=== PATIENT | female | born 2000 | race Caucasian/White ===

== ENCOUNTER 2022-02-15 09:30 | Emergency (ER) | payer BC, SELFPAY ==
[2022-02-15] VITALS (8 sets, daily range): BP systolic 116–136; BP diastolic 29–90; PULSE 72–96; RESP 18–19; TEMP 36.7–36.9; O2SAT 97–100; BMI 20.3
--- NOTE | 2022-02-15 09:37 | HMH.EDGENADL ---
Discharge Plan Disposition Patient Disposition: Home, Self-Care Condition: Fair Prescriptions Prescriptions: New omeprazole 20 mg capsule,delayed release(DR/EC) 20 mg PO DAILY 28 Days Qty: 28 0RF No Action norgestimate-ethinyl estradiol [Sprintec (28)] 0.25-35 mg-mcg tablet 1 tab PO DAILY Qty: 28 6RF Referrals Follow up/Referrals: Provider,Referral, MD [Primary Care Provider] - See instructions Activity Restrictions/Add. Instructions Additional Instructions/Restrictions: You have been evaluated for abdominal pain. No clear source identified. It may be due to ulcers. Please start taking daily omeprazole. Avoid spicy food, fatty food, eating for bedtime. It would be a good idea to try a bowel cleanout regimen. Take 3 doses of MiraLAX today. Follow-up with your primary care doctor in 1 to 2 days for symptom recheck. Return to the emergency department at once for any new or worsening symptoms Clinical Impressions Clinical Impression: Epigastric abdominal pain Stand Alone Forms Stand Alone Forms: Work/School Release Instructions Patient Instructions: DI for Acute Abdominal Pain, DI for Epigastric Pain Discharge ED Provider: Huyen Stoddard Adult HPI General Chief complaint: Abdominal Pain Stated complaint: Lower back pain, RT side rib pain Time Seen by Provider: 02/15/22 09:32 History of Present Illness HPI narrative: 21-year-old female presenting to the emergency department with abdominal pain. Pain started yesterday evening after dinner. It is described as a sharp, squeezing pain that is located in the upper abdomen. Radiates slightly to the right and into her back. Pain has been almost constant since onset. Associated nausea with one episode of emesis. [place] better after vomiting briefly. No recent illness, fevers, chills, cough, shortness of breath. Had diarrhea last week. No constipation. She has a history of gastric sleeve surgery 2 years ago. Denies complications. Has had appendectomy. Sexually active with boyfriend. Denies concern for . No medications prior to arrival Related Data Previous Rx's Medication Instructions Recorded norgestimate 0.25 mg-ethinyl 1 tab PO DAILY #28 tabs 09/16/21 estradiol 35 mcg tablet (Sprintec (28)) omeprazole 20 mg capsule,delayed 20 mg PO DAILY 4 weeks #28 caps 10/15/22 release Allergies Allergy/AdvReac Type Severity Reaction Status Date / Time No Known Allergies Allergy Verified 04/16/20 13:46 PFSH PFS Social History Smoking Status: Current every day smoker alcohol intake: never substance use type: denies use current occupational status: other Travel in the last 8 weeks: None ROS Obtained: Yes All systems reviewed & no additional complaints except as documented Constitutional Constitutional: Denies chills, Denies fever(s) and Denies headache(s) Eyes Eyes: Denies blurry vision and Denies itchy eyes ENT Ears, Nose, Mouth, and Throat: Denies headache(s), Denies neck pain and Denies sore throat Cardiovascular Cardiovascular: Denies chest pain, Denies dyspnea and Denies palpitations Respiratory Respiratory: Denies cough, Denies dyspnea and Denies wheezing Gastrointestinal Gastrointestingal: Reports abdominal pain, bloating, cramping, diarrhea, nausea and vomiting Genitourinary Female Genitourinary: Denies dysuria and Denies flank pain Musculoskeletal Musculoskeletal: Denies neck pain and Denies numbness Neurologic Neurologic: Denies headache(s) and Denies numbness Endocrine Endocrine: Denies palpitations Allergic/Immunologic Allergic/Immunologic: Denies itchy eyes and Denies wheezing Physical Exam General General appearance: alert and in no apparent distress Head Head exam: atraumatic and normocephalic ENT ENT exam: Present normal exam, normal oropharynx and mucous membranes moist Respiratory Respiratory exam: Present normal lung sounds bilaterally; Absent respiratory distress or wheezes Ca
[2022-02-15 09:57] LABS: Basophils # 0.1 K/mm3 (0-0.2); Basophils % 0.6 % (0.1-2.0); Eosinophils # 0.1 K/mm3 (0.0-0.4); Eosinophils % 1.4 % (0.1-12.0); Hematocrit 44.2 % (37.0-47.0); Hemoglobin 14.8 g/dL (12.2-16.2); Lymphocytes # 2.1 K/mm3 (0.7-4.5); Lymphocytes % 24.9 % (10-50); Mean Corpuscular HGB Conc 33.5 g/dL (31.8-35.4); Mean Corpuscular Hemoglobin 29.1 pg (27.0-31.2); Mean Corpuscular Volume 86.7 fl (81-99); Mean Platelet Volume 8.3 fl (7.4-10.4); Monocytes # 0.5 K/mm3 (0.1-1.0); Monocytes % 5.5 % (1.7-9.3); Neutrophils # 5.8 K/mm3 (1.8-7.8); Neutrophils % 67.6 % (37.0-80.0); Platelet Count 338 K/mm3 (142-424); Red Cell Distribution Width 13.3 % (11.5-17.5); White Blood Count 8.5 K/mm3 (4.8-10.8)
[2022-02-15 10:01] LABS: Chloride 106 mmol/L (98-107); Sodium 141 mmol/L (136-145)
[2022-02-15 10:03] LABS: Alanine Aminotransferase 24 U/L (12-78); Alkaline Phosphatase 74 U/L (38-126); Aspartate Amino Transferase 46 U/L (14-36); Bilirubin,Total 0.8 mg/dl (0.2-1.3); Blood Urea Nitrogen 5 mg/dl (7-17); Estimated Glomerular Filt Rate 106 ml/min (>60); GFR (African American) 128 ML/MIN (>60)
[2022-02-15 10:04] LABS: Albumin Level 4.9 g/dl (3.5-5.0); Albumin/Globulin Ratio 1.8 (1.1-1.8); Calcium 9.1 mg/dl (8.4-10.2); Carbon Dioxide 23 mmol/L (22.0-30.0); Globulin 2.8 g/dL (1.3-3.2); Glucose 101 mg/dl (74-100); Lipase 45 U/L (23-300); Total Protein,Serum 7.7 g/dl (6.3-8.2)
--- NOTE | 2022-02-15 10:24 | CT_ITS ---
PROCEDURE INFORMATION: Exam: CT Abdomen And Pelvis With Contrast Exam date and time: 02/15/2022 11:09 AM Age: 21 years old Clinical indication: Abdominal pain; Prior surgery; Surgery date: 6+ months; Surgery type: HX of gastric sleeve TECHNIQUE: Imaging protocol: Computed tomography of the abdomen and pelvis with contrast. Radiation optimization: All CT scans at this facility use at least one of these dose optimization techniques: automated exposure control; mA and/or kV adjustment per patient size (includes targeted exams where dose is matched to clinical indication); or iterative reconstruction. Contrast material: ISOVUE; Contrast volume: 75 ml; Contrast route: IV; COMPARISON: No relevant prior studies available. FINDINGS: Lungs: No acute airspace or pleural disease. Liver: Fatty infiltration of the liver. Gallbladder and bile ducts: Unremarkable gallbladder. Pancreas: No pancreatic mass or ductal dilatation. Spleen: No splenomegaly. Adrenal glands: Unremarkable adrenals. Kidneys and ureters: Normal renal morphology. No hydronephrosis. Stomach and bowel: Status post gastric surgery. Mild colonic dilatation and prominent stool. Diverticula, without pericolonic inflammation. Appendix: Nonvisualization of the appendix. Intraperitoneal space: No significant free fluid. Vasculature: Normal caliber of the abdominal aorta. Lymph nodes: Subcentimeter lymph nodes. Urinary bladder: Nondistended bladder. Reproductive: 2.3 cm right ovarian cyst. Bones/joints: No acute osseous pathology. Soft tissues: Infiltration of subcutaneous fat about the umbilicus. IMPRESSION: 1. No acute inflammatory process in the abdomen or pelvis. 2. 2.3 cm right ovarian cyst. 3. Additional findings as described above.
[2022-02-15 10:45] LABS: Microscopic, Urine URINE MICROSCOPIC (MICROSCOPIC)
[2022-02-15 10:46] LABS: Appearance,Urine SL CLOUDY (Clear); Bilirubin,Urine Negative (Negative); Blood, Urine Negative (Negative); Color,Urine YELLOW (Yellow); Glucose,Urine (UA) Negative (Negative); Ketones,Urine Negative (Negative); Leukocyte Esterase,Urine 2+ (Negative); Nitrate,Urine Negative (Negative); Protein,Urine Negative (Negative); Urobilinogen,Urine 0.2 EU/dl (0.2)
[2022-02-15 10:47] LABS: Urine Pregnancy, HCG Qual. Negative (Negative)
[2022-02-15 11:22] LABS: Bacteria,Urine 2+ /lpf; RBC,Urine Occasional #/hpf (0-3)
== END 2022-02-15 13:50 | disposition home or self-care (01) ==
PROVIDERS: Emergency Provider Emergency Medicine
DX: R10.13 Epigastric pain; Z72.0 Tobacco use
CPT/HCPCS: 74177; 80053; 81001; 81025; 83690; 85025; 87086; 96365; 96375; 99284; J2405; Q9967

== ENCOUNTER 2022-02-24 12:31 | Emergency (ER) | payer BC, SELFPAY ==
[2022-02-24 12:31] VITALS: BP 126/82; PULSE 91; RESP 18; TEMP 37.1; O2SAT 97; BMI 20.3
--- NOTE | 2022-02-24 14:29 | EXP.UTC ---
Discharge Plan Disposition Patient Disposition: Home, Self-Care Condition: Good Prescriptions Prescriptions: New tclkvcyuznskdat-rwnjrnvyk-TP [Bromfed DM] 2-30-10 mg/5 mL Syrup 10 ml PO Q4H PRN (Reason: Cough) Qty: 240 0RF azithromycin [Zithromax Z-Jules] 250 mg tablet See Rx Instructions .ROUTE .COMPLEX 5 Days Qty: 6 0RF Rx Instructions: For 250 mg dose pack: take 500 mg today (day 1), then 250 mg for 4 days (days 2-5) prednisone 20 mg tablet 20 mg PO BID Qty: 10 0RF albuterol sulfate [Proventil HFA] 90 mcg/actuation HFA aerosol inhaler 1 inh inhalation Q6H PRN (Reason: shortness of breath or wheezing) Qty: 8.5 0RF No Action norgestimate-ethinyl estradiol [Sprintec (28)] 0.25-35 mg-mcg tablet 1 tab PO DAILY Qty: 28 6RF omeprazole 20 mg capsule,delayed release(DR/EC) 20 mg PO DAILY norgestimate-ethinyl estradiol [Sprintec (28)] 0.25-35 mg-mcg tablet 1 tab PO DAILY Label Comments: TAKE 1 TABLET BY MOUTH ONCE DAILY sertraline 100 mg tablet 100 mg PO DAILY Label Comments: TAKE 1 TABLET BY MOUTH ONCE DAILY Referrals Follow up/Referrals: Provider,Referral, MD [Primary Care Provider] - See instructions Discharge ED Provider: Christianne Cote [facility] [place] HPI General Stated complaint: RSV Exposure, cough, drainage, congestion Mode of Arrival: Ambulatory Source of Information: Patient Limitations: No Limitations Time Seen by Provider: 02/24/22 14:29 Description of Symptoms (Recalled from Triage Doc. by RN): exposed to RSV lst thursday. cough runny nose, diarrhea LINDO HEENT Symptoms (Recalled from RN notes): Yes Resp Symptoms (Recalled from RN notes): Yes Skin Symptoms (Recalled from RN notes): No MS Symptoms (Recalled from RN notes): No Functional Status (Recalled from RN notes): n/a History of Present Illness Provider Complaint: Patient states that she was around a family member that had RSV a week or so ago States that she has been having sinus congestion and pressure, drainage in the back of her throat and feeling like it is trying to move into her chest States that at times she will cough up some mucous States that today she was feeling worse so she came in Related Data Home Medications Medication Instructions Recorded Confirmed norgestimate 0.25 mg-ethinyl 1 tab PO DAILY control 02/24/22 02/24/22 estradiol 35 mcg tablet (Sprintec (28)) omeprazole 20 mg capsule,delayed 20 mg PO DAILY control 02/24/22 release sertraline 100 mg tablet 100 mg PO DAILY mood 02/24/22 02/24/22 Previous Rx's Medication Instructions Recorded norgestimate 0.25 mg-ethinyl 1 tab PO DAILY #28 tabs 09/16/21 estradiol 35 mcg tablet (Sprintec (28)) albuterol sulfate 90 mcg/actuation 1 inh inhalation Q6H PRN shortness 02/24/22 aerosol inhaler (Proventil HFA) of breath or wheezing #8.5 grams azithromycin 250 mg tablet See Rx Instructions PO .COMPLEX 5 02/24/22 (Zithromax Z-Jules) days #6 tabs ouhhhcfxrcnfuye-xcbffsbaxmrjetz-RC 10 ml PO Q4H PRN Cough #240 mL 02/24/22 2 mg-30 mg-10 mg/5 mL oral syrup (Bromfed DM) prednisone 20 mg tablet 20 mg PO BID #10 tabs 02/24/22 Allergies Allergy/AdvReac Type Severity Reaction Status Date / Time No Known Allergies Allergy Verified 04/16/20 13:46 Worker's Comp Is this a Worker's Comp case?: No PFSH PFSH Social History Smoking Status: Current every day smoker alcohol intake: never substance use type: denies use current occupational status: other Travel in the last 8 weeks: None ROS Obtained: Yes All systems reviewed & no additional complaints except as documented and Yes Systems reviewed as appropriate & no additional complaints except as documented Constitutional Constitutional: Reports system reviewed and no additional complaints, except as documented, Reports as per HPI and Reports headache(s) ENT Ears, Nose, Mouth, and Throat: Reports system reviewed and no additional complaints, except as docu
[2022-02-24 14:37] LABS: Adenovirus,PCR Not Detected (NotDetected); Bordetella Pertussis Not Detected (NotDetected); Chlamydophila Pneumoniae, PCR Not Detected (NotDetected); Coronavirus 19, PCR Not Detected (NotDetected); Coronavirus 229E Not Detected (NotDetected); Coronavirus NL63 Not Detected (NotDetected); Coronavirus OC43 Not Detected (NotDetected); Coronovirus HKU1,PCR Not Detected (NotDetected); Human Metapneumovirus Not Detected (NotDetected); Influenza A, PCR Not Detected (NotDetected); Influenza AH1, 2009 Not Detected (NotDetected); Influenza AH1, PCR Not Detected (NotDetected); Influenza AH3,PCR Not Detected (NotDetected); Influenza B, PCR Not Detected (NotDetected); Mycoplasma Pneumoniae, PCR Not Detected (NotDetected); Parainfluenza 1, PCR Not Detected (NotDetected); Parainfluenza 2, PCR Not Detected (NotDetected); Parainfluenza 3, PCR Not Detected (NotDetected); Parainfluenza 4, PCR Not Detected (NotDetected); Rhinovirus/Enterovirus Not Detected (NotDetected)
[2022-02-24 15:05] VITALS: BP 126/84; PULSE 84; RESP 19; TEMP 37.1; O2SAT 98
[2022-02-24 17:45] LABS: Respiratory Syncytial Virus Detected (NotDetected)
== END 2022-02-24 15:04 | disposition home or self-care (01) ==
PROVIDERS: Emergency Provider Nurse Practitioner
DX: R06.02 Shortness of breath (principal); B97.4 Respiratory syncytial virus as the cause of diseases classified elsewhere; R51.9 Headache, unspecified; Z20.822 Contact with and (suspected) exposure to COVID-19; F17.200 Nicotine dependence, unspecified, uncomplicated; Z79.51 Long term (current) use of inhaled steroids; Z79.52 Long term (current) use of systemic steroids; Z79.899 Other long term (current) drug therapy; Z79.3 Long term (current) use of hormonal contraceptives
CPT/HCPCS: 87581; 87632; 87798; 99213; C9803; G0463; U0003; U0005

== ENCOUNTER 2023-05-07 16:43 | Outpatient (CLI) | payer BC, SELFPAY ==
--- NOTE | 2023-05-07 16:50 | XR_ITS ---
PROCEDURE INFORMATION: Exam: XR Chest Exam date and time: 05/07/2023 4:54 PM Age: 22 years old Clinical indication: Pre-operative exam; Respiratory screening exam; Additional info: Asthma TECHNIQUE: Imaging protocol: Radiologic exam of the chest. Views: 2 views. Total images: 2 COMPARISON: CT ABDOMEN PELVIS W CON 02/15/2022 11:09 AM FINDINGS: Lungs: Unremarkable. No consolidation. Pleural spaces: Unremarkable. No pleural effusion. No pneumothorax. Heart/Mediastinum: Unremarkable. No cardiomegaly. Bones/joints: Unremarkable. IMPRESSION: No acute findings.
== END 2023-05-07 23:59 ==
PROVIDERS: PCP Nurse Practitioner Family; Visit Provider Colon & Rectal Surgery
DX: J45.909 Unspecified asthma, uncomplicated (principal)
CPT/HCPCS: 71046

== ENCOUNTER 2024-12-29 16:29 | Emergency (ER) | payer BC, SELFPAY ==
[2024-12-29 17:23] VITALS: BP 108/58; PULSE 65; RESP 17; TEMP 36.5; O2SAT 100; BMI 24.4
[2024-12-29 17:38] VITALS: BP 118/72; PULSE 66; O2SAT 100
[2024-12-29 17:38] LABS: Microscopic, Urine URINE MICROSCOPIC (MICROSCOPIC)
[2024-12-29 17:39] LABS: Bilirubin,Urine Negative (Negative); Color,Urine YELLOW (Yellow); Glucose,Urine (UA) Negative (Negative); Ketones,Urine Negative (Negative); Leukocyte Esterase,Urine TRACE (Negative); PH,Urine 6.5 (5.0-8.5); Protein,Urine Negative (Negative); Specific Gravity, Urine <= 1.005 (1.005-1.030); Urobilinogen,Urine 0.2 EU/dl (0.2)
--- NOTE | 2024-12-29 17:55 | US_ITS ---
PROCEDURE INFORMATION: Exam: US , Transvaginal Exam date and time: 12/29/2024 6:06 PM Age: 24 years old Clinical indication: Lmp or gestational age (in weeks): 8w2d; Other: Vaginal bleeding -- early preg; ; Additional info: 8 weeks, vaginal bleeding LABS AND CLINICAL REPORTS: Last menstrual period start date: 10/27/2024 Gestational age (Established): 9 w 0 d Estimated due date (Established): 08/03/2025 TECHNIQUE: Imaging protocol: Real-time transvaginal obstetrical ultrasound of the maternal pelvis with image documentation. Transvaginal imaging was used for better evaluation of the fetus, adnexa, and/or cervix. COMPARISON: CT ABDOMEN PELVIS W CON 02/15/2022 11:09 AM FINDINGS: Gestation: Yolk sac measures 6.3 mm. heart rate: 176 bpm Placenta: Small subchorionic hemorrhage is present. BIOMETRY: Gestational age (AUA): 8 w 2 d Estimated due date (AUA): 08/08/2025 [place] rump length (CRL): 17.47 mm. EGA (CRL) is 8 w 2 d MATERNAL: Right ovary/adnexa: Right ovary measures 2.76 cm x 1.68 cm x 1.75 cm. Right ovarian volume is 4.25 mL. Arterial and venous flow is present. Left ovary/adnexa: Left ovary measures 2.86 cm x 1.85 cm x 1.98 cm. Left ovarian volume is 5.49 mL. Arterial and venous flow is present. IMPRESSION: Single viable intrauterine gestation, estimated gestational age is 8 weeks and 2 days. Small subchorionic hemorrhage is noted.
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
[2024-12-29 18:00] VITALS: BP 109/67; PULSE 75; O2SAT 100
[2024-12-29 18:02] LABS: Bacteria,Urine 1+ /lpf; RBC,Urine Occasional #/hpf (0-3); WBC,Urine Occasional #/hpf (0-3)
[2024-12-29 18:28] LABS: Hematocrit 36.0 % (37.0-47.0); Hemoglobin 12.1 g/dL (12.2-16.2); Immature Granulocytes % 0.3 %; Mean Corpuscular HGB Conc 33.6 g/dL (31.8-35.4); Mean Corpuscular Hemoglobin 27.9 pg (27.0-31.2); Mean Corpuscular Volume 82.9 fl (81-99); Nucleated Red Blood Cells % 0 %; Platelet Count 246 K/mm3 (142-424); Red Blood Count 4.34 M/mm3 (4.20-5.40); Red Cell Distribution Width-SD 42.4 fL; White Blood Count 10.9 K/mm3 (4.8-10.8)
[2024-12-29 18:49] LABS: Albumin Level 3.9 g/dl (3.5-5.0); Chloride 110 mmol/L (98-107); Potassium 3.8 mmoL/L (3.5-5.1); Sodium 134 mmol/L (136-145)
[2024-12-29 18:50] VITALS: BP 120/69; PULSE 73; O2SAT 97
[2024-12-29 18:52] LABS: Alanine Aminotransferase 7 U/L (12-78); Albumin/Globulin Ratio 1.8 (1.1-1.8); Alkaline Phosphatase 54 U/L (38-126); Anion Gap 8.8 mEq/L (5-15); Aspartate Amino Transferase 22 U/L (14-36); Bilirubin,Total 0.6 mg/dl (0.2-1.3); Blood Urea Nitrogen 4 mg/dl (7-17); Carbon Dioxide 19 mmol/L (22.0-30.0); Creatinine Clearance Estimated 194 mL/min (50-200); Creatinine,Serum 0.50 mg/dl (0.52-1.04); Estimated Glomerular Filt Rate 152 ml/min (>60); GFR (African American) 183 ML/MIN (>60); Globulin 2.2 g/dL (1.3-3.2); Total Protein,Serum 6.1 g/dl (6.3-8.2)
[2024-12-29 18:53] LABS: Calcium 8.7 mg/dl (8.4-10.2); Glucose 86 mg/dl (74-100)
--- NOTE | 2024-12-29 19:09 | PC.NURSE ---
Report received from Sybil RN Pt resting quielty in bed Skin pink warm and dry Resp full and easy Speech clear and appropriate
[2024-12-29 19:37] VITALS: BP 127/80; PULSE 73; RESP 18; TEMP 36.6; O2SAT 97
== END 2024-12-29 19:40 | disposition home or self-care (01) ==
PROVIDERS: Emergency Provider Student in an Organized Health Care Education/Training Program; PCP Nurse Practitioner Family
DX: O46.8X9 Other antepartum hemorrhage, unspecified trimester (principal); O99.891 Other specified diseases and conditions complicating pregnancy; Z3A.08 8 weeks gestation of pregnancy
CPT/HCPCS: 36415; 76817; 80053; 81001; 84702; 85025; 86850; 99283; 99284

== ENCOUNTER 2025-01-05 15:20 | Outpatient (CLI) | payer BC, SELFPAY ==
[2025-01-05 16:17] LABS: Hematocrit 36.5 % (37.0-47.0); Hemoglobin 11.9 g/dL (12.2-16.2); Immature Granulocytes % 0.4 %; Mean Corpuscular HGB Conc 32.6 g/dL (31.8-35.4); Mean Corpuscular Hemoglobin 27.0 pg (27.0-31.2); Mean Corpuscular Volume 82.8 fl (81-99); Nucleated Red Blood Cells % 0 %; Platelet Count 273 K/mm3 (142-424); Red Blood Count 4.41 M/mm3 (4.20-5.40); Red Cell Distribution Width-SD 42.3 fL; White Blood Count 8.4 K/mm3 (4.8-10.8)
[2025-01-05 20:54] LABS: Hepatitis C Ab Qual. W/ RFX NEGATIVE (Negative)
[2025-01-06 07:49] LABS: RPR W/RFX Titers Nonreactive (Nonreactive)
[2025-01-07 07:25] LABS: Hepatitis B Surface Antigen Negative (Negative)
[2025-01-08 14:26] LABS: Rubella Antibodies, IgG 0.98 index (Immune >0.99)
== END 2025-01-05 23:59 | disposition home or self-care (01) ==
LOC: LAB 15:20
PROVIDERS: PCP Nurse Practitioner Family; Visit Provider Obstetrics & Gynecology
DX: O46.8X9 Other antepartum hemorrhage, unspecified trimester (principal); O99.891 Other specified diseases and conditions complicating pregnancy; R82.71 Bacteriuria
CPT/HCPCS: 36415; 85025; 86592; 86762; 86803; 86850; 87086; 87340; 87389

== ENCOUNTER 2025-01-08 14:31 | Outpatient (CLI) | payer BC, SELFPAY ==
[2025-01-08 20:11] LABS: Coronavirus 19, PCR Not Detected (NotDetected); Influenza A, PCR Not Detected (NotDetected); Influenza B, PCR Not Detected (NotDetected)
== END 2025-01-08 23:59 | disposition home or self-care (01) ==
LOC: LAB.DROPOF 01-09 10:49
PROVIDERS: PCP Student in an Organized Health Care Education/Training Program; Visit Provider Student in an Organized Health Care Education/Training Program
DX: R52 Pain, unspecified (principal)
CPT/HCPCS: 87636

== ENCOUNTER 2025-03-24 12:52 | Outpatient (CLI) | payer OTHER, SELFPAY ==
--- NOTE | 2025-03-24 13:00 | US_ITS ---
PROCEDURE: US OB /MATERNAL DETAIL CLINICAL INDICATION: 20 week anatomy COMPARISON: No exams were available for comparison FINDINGS: Transabdominal sonographic images of the pelvis were obtained. From her established due date she is 20 weeks 3 days. Single viable intrauterine gestation. Breech position. Placenta: Posteriorplacenta grade 1. There is an average amount of fluid. The cervix appears satisfactory. Closed and measuring 2.85 cm in length. Complete survey performed and was unremarkable on the submitted images as in PACS. No discrete anomalies identified on survey imaging by technologist. Active fetus. Three-vessel cord with satisfactory umbilical cord insertion. 4- chamber heart noted. Situs, aortic arch, LVOT, RVOT, three-vessel view appear normal. Survey of brain & ventricles Unremarkable. Cerebellum, thalamus, choroid plexus, cisterna magna appear normal. Face and neck survey unremarkable. Profile, nasion, lips and nose appeared normal. Diaphragm and chest views unremarkable. Abdomen: Both kidneys noted and unremarkable. Stomach and bladder noted and satisfactory. Spine: Survey of the spine satisfactory with no anomalies identified nor imaged. Cervical, thoracic, lower spine appear normal. Both arms and legs noted. Amniotic Fluid: Adequate. MVP 4.65 cm Measurements: Average ultrasound age 20weeks 5days. Estimated due date by ultrasound age 0408/06/2025. Estimated weight 356g BPD = 21weeks 0 days HC = 20weeks 4days AC = 20weeks 5days FL = 20weeks 2days Growth Percentile= 46 Heart Rate = 143bpm Cerebellum = 20weeks 4days Humerus = 20weeks 5days HC/AC is 1.17 FL/BPD is 0.66 FL/AC is 0.21 IMPRESSION: 1. Viable fetus in the breech presentation with a posterior placenta grade 1. 2. The fluid is within normal limits with an MVP 4.65 cm. 3. Anatomical scan appears normal. 4. biometry is consistent with the dates. Dictated by: Efren Crook MD 03/25/2025 08:01 Efren Crook MD in [facility] 03/25/2025 08:01
== END 2025-03-24 23:59 | disposition home or self-care (01) ==
LOC: RAD 12:53
PROVIDERS: PCP Nurse Practitioner Family; Visit Provider Obstetrics & Gynecology
DX: O32.1XX0 Maternal care for breech presentation, not applicable or unspecified (principal); O99.342 Other mental disorders complicating pregnancy, second trimester; O99.891 Other specified diseases and conditions complicating pregnancy; R41.9 Unspecified symptoms and signs involving cognitive functions and awareness; R82.71 Bacteriuria; Z3A.20 20 weeks gestation of pregnancy
CPT/HCPCS: 76811